=== PATIENT | female | born 1980 | race Caucasian/White ===

== ENCOUNTER 2018-09-04 16:53 | Emergency (ER) | payer MEDICAID ==
[~2018-09-04] VITALS: Wt 69.1 kg
[2018-09-04 17:00] VITALS: Wt 69.1 kg
--- NOTE | 2018-09-04 17:28 | EN ---
Date/Time of Note Date/Time of Note DATE: 09/04/18 TIME: 17:26 ER Progress Note 38-year-old female with history of tubal ligation who presents with left pelvic pain and vaginal bleeding after sexual intercourse with her 2 days ago. Has a history of regular but heavy menstrual cycles. No vaginal discharge. No fevers, nausea, vomiting, back pain. No history of same. Medical screening exam initiated and labs and imaging tests ordered. Patient will be seen by another provider. MARK STUART PA-C Sep 04, 2018 17:28
--- NOTE | 2018-09-04 19:25 | ERD ---
ER Documentation Chief Complaint Chief Complaint pelvic pain, vag burning, vag bleed on intercourse HPI 38-year-old female presents the emergency department complaining of heavy vaginal bleeding and vaginal pain. Patient states that over the last few days, she has had heavy vaginal bleeding with intercourse. She reports some lower pelvic pain associated with that. She reports no fevers, chills, discharge or drainage. She states she has had normal pelvic exams in the past. She states that she has heavy menstrual cycles, but this bleeding is somewhat unusual. She reports no dysuria, hematuria or abdominal pain ROS All systems reviewed and are negative except as per history of present illness. Allergies Allergies: Coded Allergies: No Known Drug Allergies (Verified Allergy, Unknown, 12/02/14) PMhx/Soc Medical and Surgical Hx: pt denies Medical Hx, pt denies Surgical Hx History of Surgery: No Anesthesia Reaction: No Hx Neurological Disorder: No Hx Respiratory Disorders: No Hx Cardiac Disorders: No Hx Psychiatric Problems: No Hx Miscellaneous Medical Probl: No Hx Alcohol Use: No Hx Substance Use: No Hx Tobacco Use: No Smoking Status: Never smoker Physical Exam Vitals Vital Signs Date Temp Pulse Resp B/P (MAP) Pulse Ox O2 O2 Flow FiO2 Time Delivery Rate 09/04/18 98.1 77 20 141/65 99 17:00 (90) Physical Exam GENERAL: The patient is well developed and appropriate for usual state of health in no apparent distress HEENT: Pupils equal, round, and reactive to light. EOMI. There is no scleral icterus. NECK: C-spine is soft and supple, there is no meningismus. There is no cervical lymphadenopathy. LUNGS: Clear to auscultation bilaterally. There are no rales, wheezes or rhonchi. HEART: Regular rate and rhythm, no murmurs, clicks, rubs or gallops. ABDOMEN: Soft, non-tender, non-distended. There are bowel sounds in all four quadrants. No rebound or guarding. EXTREMITIES: There is no peripheral cyanosis or edema. No focal swelling or erythema. NEURO: The patient moves all four extremities with 5/5 strength. Cranial nerves II - XII are intact. Normal gait. Alert and oriented SKIN: There is no apparent rash or petechiae. HEME/LYMPHATIC: There is no evidence of excessive bruising or lymphedema. PSYCHIATRIC: The patient does not appear anxious or depressed. Result Diagram: 09/04/18 1851 Results 24 hrs Laboratory Tests Test 09/04/18 18:47 09/04/18 18:51 POC Beta HCG, Qualitative NEGATIVE White Blood Count 7.6 10^3/ul Red Blood Count 4.18 10^6/ul Hemoglobin 12.7 g/dl Hematocrit 38.7 % Mean Corpuscular Volume 92.6 fl Mean Corpuscular Hemoglobin 30.4 pg Mean Corpuscular Hemoglobin Concent 32.8 g/dl Red Cell Distribution Width 11.7 % Platelet Count 291 10^3/UL Mean Platelet Volume 9.8 fl Immature Granulocytes % 0.300 % Neutrophils % 59.4 % Lymphocytes % 32.2 % Monocytes % 7.2 % Eosinophils % 0.4 % Basophils % 0.5 % Nucleated Red Blood Cells % 0.0 /100WBC Immature Granulocytes # 0.020 10^3/ul Neutrophils # 4.5 10^3/ul Lymphocytes # 2.5 10^3/ul Monocytes # 0.6 10^3/ul Eosinophils # 0.0 10^3/ul Basophils # 0.0 10^3/ul Nucleated Red Blood Cells # 0.0 10^3/ul Procedures/MDM Patient was taken to a room, seen and evaluated. Comfort measures were initiated. Diagnostic tests were ordered and reviewed. RADIOLOGY: Reviewed with the radiologist REEVALUATION: Diagnostic tests were appreciated and discussed with the patient. Patient remained clinically nontoxic and appropriate for discharge. MEDICAL DECISION MAKIN-year-old female presents the emergency department with heavy vaginal bleeding and pain. At this time, patient's ultrasound does not demonstrate any indications of significant high risk structural concerns, and her abnormal vaginal bleeding should be reevaluated by her math instructor I referred her back to her math instructor. Her blood counts indicate no indications of significant blood loss. She has no evidence of active infection. Patient appears to be clinically nontoxic and appropriate for discharge at this time. Departure Diagnosis: Primary Impression: Acute pain in female pelvis Condition: Stable Patient Instructions: Pelvic Pain, Unknown Cause Additional Instructions: Please go see her math instructor this week for reevaluation. Return for any problems or concerns. BARBARA VALLADARES Sep 04, 2018 19:24
[2018-09-04 19:33] VITALS: BP 140/69; PULSE 55; RESP 16
== END 2018-09-04 19:35 | disposition home or self-care (01) ==
LOC: FTE 16:53
DX: R10.2 Pelvic and perineal pain (principal)
CPT/HCPCS: 76856; 81025; 85025; Z7502